=== PATIENT | male | born 2000 | race Two or more races ===

== ENCOUNTER 2024-08-06 14:25 | Emergency (ER) | payer OTHER ==
[~2024-08-06] VITALS: Ht 172.7 cm; Wt 127.3 kg
[2024-08-06 14:30] VITALS: TEMP 98
[2024-08-06] MEDS: IBUPROFEN 600 MG TABLET PO ONE (15:33)
[2024-08-06] MEDS: ACETAMINOPHEN/CODEINE 300-30 MG TABLET PO ONE (15:34)
[2024-08-06 15:40] VITALS: BP 143/85; PULSE 82; RESP 18; O2SAT 98
[2024-08-06] MEDS ORDERED: ACET-2080 PO (15:42)
[2024-08-06] MEDS ORDERED: IBUP-1554 PO (15:42)
== END 2024-08-06 15:55 | disposition home or self-care (01) ==
LOC: EMS 14:25
DX: S93.401A Sprain of unspecified ligament of right ankle, initial encounter (principal); F12.90 Cannabis use, unspecified, uncomplicated; X50.1XXA Overexertion from prolonged static or awkward postures, initial encounter; Y93.89 Activity, other specified; Y92.89 Other specified places as the place of occurrence of the external cause; Y99.8 Other external cause status
CPT/HCPCS: 99283